=== PATIENT | male | born 1995 | race Caucasian/White ===

== ENCOUNTER 2019-12-11 13:16 | Emergency (ER) | payer OTHER ==
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
[2019-12-11 14:29] VITALS: BP 134/69; TEMP 98.6; O2SAT 100
[2019-12-14 11:48] LABS: HBsAG Nonreactive (Nonreactive)
[2019-12-14 15:57] LABS: HIV AG/AB 4TH GEN Non-reactive (Non-reactive)
== END 2019-12-11 14:24 | disposition home or self-care (01) ==
LOC: ER 13:16
DX: Z77.21 Contact with and (suspected) exposure to potentially hazardous body fluids (principal)
CPT/HCPCS: 86705; 86803; 87340; 87389; 99281